=== PATIENT | male | born 2000 | race Caucasian/White ===

== ENCOUNTER 2021-09-06 10:22 | Outpatient (REF) | payer MEDICAID, SELFPAY ==
[2021-09-06 10:55] LABS: COVID-19 Test Negative (Negative)
== END 2021-09-06 10:23 | disposition home or self-care (01) ==
LOC: HO.LAB 10:22
PROVIDERS: Visit Provider Internal Medicine
DX: Z20.822 Contact with and (suspected) exposure to COVID-19 (principal)
CPT/HCPCS: 36415; 87635; C9803

== ENCOUNTER 2021-10-21 01:48 | Emergency (ER) | payer MEDICAID, SELFPAY ==
[2021-10-21 01:59] VITALS: BP 138/71; PULSE 77; RESP 16; TEMP 36.1; O2SAT 99; BMI 34.4
--- NOTE | 2021-10-21 02:33 | ED.BACK ---
HPI - Back Pain/Injury General Chief Complaint: Back Pain/Injury Stated Complaint: Back pain Time Seen by Provider: 10/21/21 01:55 Source: patient Mode of arrival: ambulatory History of Present Illness HPI Narrative: 20-year-old male who presents with chronic lower back pain and states that over the past 2-3 days is become worse on the left lower side without associated fever, chills, nausea, vomiting, urinary pain/burning/frequency and denies any radiation down into the left lower extremity. In addition, patient denies any trauma for muscle strain that may have caused to worsen. Related Data Allergies Allergy/AdvReac Type Severity Reaction Status Date / Time No Known Allergies Allergy Verified 10/21/21 01:58 Review of Systems Review of Systems: Pertinent positives and negatives as stated in HPI 10 point review of systems is otherwise negative. PMFSH Past Medical History Source: nursing notes reviewed Medical History ADHD Social History Social History Advance Directives: No Physical Exam Vital Signs: Vital Signs: Last Vital Signs Temp 97.0 F 10/21/21 01:59 Pulse 77 10/21/21 01:59 Resp 16 10/21/21 01:59 BP 138/71 10/21/21 01:59 Pulse Ox 99 10/21/21 01:59 Body Mass Index 34.4 VITAL SIGNS: Reviewed. GENERAL: Well developed, well nourished, in no acute distress. HEAD: Normocephalic/atraumatic EYES: PERRLA, EOMI OROPHARYNX: no oral lesions noted, posterior pharynx clear NECK: Supple, no adenopathy LUNGS: Normal breath sounds. No adventitious sounds or accessory muscle use. SpO2<99> CARDIOVASCULAR: Regular rate and rhythm without noted murmurs ABDOMEN: Soft, non-tender, non-distended with bowel sounds. BACK: Mild tenderness to palpation over left paraspinal at approximate L1-L2, there is no midline vertebral tenderness SKIN: Inspection of the skin reveals no rashes NEUROLOGIC: Alert and oriented x 4. Strength and sensation to light touch were grossly intact x 4. Course Course Course Narrative: 20-year-old male with history and clinical presentation consistent with acute on chronic back pain no evidence to suggest infectious etiology and not consistent with renal colic. On review of all investigations there are no acute findings and on reassessment patient states he has had improvement in his pain. He is otherwise discharged home in stable condition. MDM - Back Pain/Injury Lab Data Labs: Lab Results 10/21/21 Range/Units 03:03 Urine Color YELLOW Urine Appearance CLEAR Urine pH 7.0 (5.0-8.0) Ur Specific [place] 1.020 (1.005-1.025) Urine Protein NEG (NEG-TRACE) MG/DL Urine Glucose (UA) NEG (NEG) MG/DL Urine Ketones NEG (NEG) MG/DL Urine Blood NEG (NEG) Urine Nitrite NEG (NEG) Ur Leukocyte Esterase NEG (NEG) Discharge Plan Discharge Clinical Impression: Back pain Patient Disposition: Home, Self-Care Instructions: Back Pain (ED), Lower Back Exercises (ED) Additional Instructions: 1. Tylenol 1000 mg, orally, every 6 hours as needed for pain control. Do not exceed 4000 mg within 24 hours. 2. Ibuprofen 400 mg, orally with milk or food, every 6 hours as needed for pain control. You may take this with the Tylenol for improved symptom relief. 3. Lidocaine patch, these are available [id number] and should be apply to area of maximal tenderness as directed on the outside packaging. 4. Please follow-up with your primary care provider in the next 2-3 days for re-evaluation and further outpatient management. Return to the ER for acute worsening of symptoms.
[2021-10-21] MEDS: Lidocaine 4 % Patch ADH..PATCH 1 PATCH TRANSDERMA (02:36)
[2021-10-21] MEDS: Acetaminophen 325 MG TABLET 975 MG PO (02:36)
[2021-10-21 03:09] LABS: Appearance Urine CLEAR; Color Urine YELLOW; Glucose Urine UA NEG (NEG); Leukocyte Esterase Urine NEG (NEG); Nitrite Urine NEG (NEG); Urine Blood NEG (NEG); Urine Ketones NEG (NEG); Urine Protein NEG (NEG-TRACE)
[2021-10-21 03:10] LABS: UACC Culture Trigger NO
== END 2021-10-21 03:35 | disposition home or self-care (01) ==
PROVIDERS: Emergency Provider Student in an Organized Health Care Education/Training Program
DX: M54.50 Low back pain, unspecified (principal)
CPT/HCPCS: 81003; 96372; 99283; 99284